=== PATIENT | male | born 1980 | race Caucasian/White ===

== ENCOUNTER 2021-02-15 12:41 | Inpatient (IN) | payer OTHER ==
[2021-02-15 14:40] LABS: BASO % 0.4 % (0-2.0); EOS % 0.4 % (0-4.5); HEMATOCRIT 44.1 % (35.4-49); HEMOGLOBIN 15.2 GM/dL (11.7-16.9); MCH 30.4 pg (25.7-33.7); MCHC 34.5 g/dl (32.0-35.9); MEAN CELL VOLUME 88.3 fl (80-96); MEAN PLT VOLUME 8.2 fl (7.5-11.1); MONO % 9.9 % (3.8-10.2); NEUT % 80.3 % (42.8-82.8); PLATELET COUNT 447 K/MM3 (134-434); RDW 12.9 % (11.9-15.9); WHITE BLOOD COUNT 19.3 K/mm3 (4.0-10.0)
[2021-02-15] MEDS ORDERED: SODIUM CHLORIDE 1,000 ML IV STA ×2 (14:41→16:55)
[2021-02-15 14:45] LABS: PH,URINE 6.5 (5.0-8.0); URINE APPEARANCE CLOUDY; URINE BILIRUBIN NEGATIVE (NEGATIVE); URINE COLOR DK YELLOW; URINE GLUCOSE (UA) NEGATIVE (NEGATIVE); URINE KETONE 2+ (NEGATIVE); URINE LEUK ESTERASE NEGATIVE (NEGATIVE); URINE NITRITE NEGATIVE (NEGATIVE); URINE PROTEIN 1+ (NEGATIVE)
[2021-02-15 15:10] LABS: ALBUMIN 3.6 g/dl (3.4-5.0); CALCIUM 9.6 mg/dL (8.5-10.1)
[2021-02-15 15:11] LABS: BLOOD UREA NITROGEN 17.9 mg/dL (7-18)
[2021-02-15 15:13] LABS: CREATININE 1.1 mg/dL (0.55-1.3)
[2021-02-15 15:15] LABS: TOT PROT 8.4 g/dl (6.4-8.2)
[2021-02-15] MEDS ORDERED: PIPERACILLIN/TAZOB 3.375 GM 3.375 GM in DEXTROSE 5%-WATER - 50 ML IVPB ONE (16:55)
[2021-02-15 18:02] LABS: INR 1.25 (0.83-1.09); PROTHROMBIN TIME (PATIENT) 15.3 SEC (9.7-13.0)
[2021-02-15 18:58] LABS: HYALINE CASTS 3.08 /uL (0-3.1); URINE BACTERIA 22.9 /uL (0-1359); URINE RBC 19.3 /uL (0-23.9); URINE WBC 3.7 /uL (0-25.8)
[2021-02-15] MEDS: SODIUM CHLORIDE 1,000 ML IV SCH (20:00)
[2021-02-15] MEDS ORDERED: ONDANSETRON 4 MG/2 ML VIAL IVPUSH PRN (20:37)
[2021-02-15] MEDS ORDERED: ACETAMINOPHEN 1000 MG/100 ML VIAL (NON FORMULARY) IVPB PRN (21:31)
[2021-02-16] MEDS ORDERED: DEXTROSE 5%-WATER - 50 ML IVPB ONE ×3 (02:25→17:38)
[2021-02-16] MEDS ORDERED: PIPERACILLIN/TAZOBACTAM 2.25 GM VIAL IVPB ONE ×3 (02:25→17:38)
[2021-02-16] MEDS: PIPERACILLIN/TAZOB 2.25 GM 2.25 GM in DEXTROSE 5%-WATER - 50 ML IVPB SCH ×2 (02:28→09:41)
[2021-02-16 03:38] VITALS: BMI 22.5
[2021-02-16] MEDS ORDERED: PT OWN MED DRAWER 7, Y5N ONE (09:17)
[2021-02-16] MEDS: SODIUM CHLORIDE 1,000 ML IV SCH ×2 (16:42→19:58)
[2021-02-16] MEDS ORDERED: PIPERACILLIN/TAZOBACTAM 4.5 GM VIAL IVPB ONE (17:52)
[2021-02-16] MEDS ORDERED: DEXTROSE 5%-WATER 100 ML IVPB ONE (17:53)
[2021-02-16] MEDS: PIPERACILLIN/TAZOB 4.5 GM 4.5 GM in DEXTROSE 5%-WATER 100 ML IVPB SCH (17:59)
[2021-02-17] MEDS ORDERED: PIPERACILLIN/TAZOBACTAM 4.5 GM VIAL IVPB ONE ×3 (00:42→16:43)
[2021-02-17] MEDS ORDERED: DEXTROSE 5%-WATER 100 ML IVPB ONE ×3 (00:42→16:43)
[2021-02-17] MEDS: PIPERACILLIN/TAZOB 4.5 GM 4.5 GM in DEXTROSE 5%-WATER 100 ML IVPB SCH ×3 (01:05→17:52)
[2021-02-17] MEDS ORDERED: PIPERACILLIN/TAZOB 2.25 GM 2.25 GM in DEXTROSE 5%-WATER - 50 ML IVPB SCH (02:00)
[2021-02-17] MEDS ORDERED: ceFAZolin SODIUM 1 GM VIAL ONE (10:48)
[2021-02-17] MEDS ORDERED: PROPOFOL 20 ML ONE ×2 (10:48)
[2021-02-17] MEDS ORDERED: DEXAMETHASONE SOD PHOSPHATE 4 MG/1 ML VIAL ONE ×2 (10:48→13:19)
[2021-02-17] MEDS ORDERED: LIDOCAINE HCL/PF 2% SDV 5ML VIAL ONE ×2 (10:48→11:55)
[2021-02-17] MEDS ORDERED: fentaNYL CITRATE 250 MCG/5 ML VIAL ONE (10:49)
[2021-02-17] MEDS ORDERED: EPHEDRINE SULFATE/0.9% NACL/PF 50 MG/10 ML SYRINGE NR ONE (10:51)
[2021-02-17] MEDS ORDERED: MIDAZOLAM HCL 2 MG/2 ML SINGLE DOSE VIAL ONE (10:52)
[2021-02-17] MEDS ORDERED: ROCURONIUM BROMIDE 50 MG/5 ML SYRINGE ONE (12:36)
[2021-02-17] MEDS ORDERED: HYDROmorphone HCl 2 MG/ML VIAL ONE (12:37)
[2021-02-17] MEDS ORDERED: LACTATED RINGERS SOLUTION 1,000 ML IV SCH ×2 (13:15→14:23)
[2021-02-17] MEDS ORDERED: GLYCOPYRROLATE 0.2 MG/1 ML VIAL ONE (13:18)
[2021-02-17] MEDS ORDERED: KETOROLAC TROMETHAMINE 30 MG/1 ML VIAL ONE (13:19)
[2021-02-17] MEDS ORDERED: NEOSTIGMINE METHYLSULFATE 0.5 MG/ML - 10 ML MDV ONE (13:19)
[2021-02-17] MEDS ORDERED: BUPIVACAINE HCL/PF 0.5% (5 MG/ML) 30 ML VIAL IJ ONE ×2 (13:26)
[2021-02-17] MEDS ORDERED: SODIUM CHLORIDE 1,000 ML IV SCH (14:23)
[2021-02-17] MEDS ORDERED: ONDANSETRON 4 MG/2 ML VIAL IVPUSH PRN (14:23)
[2021-02-17] MEDS ORDERED: MORPHINE SULFATE 2 MG/ML VIAL IVPUSH PRN (14:23)
[2021-02-17] MEDS ORDERED: oxyCODONE HCL 5 MG TABLET PO PRN ×2 (14:23)
[2021-02-17] MEDS ORDERED: ACETAMINOPHEN 1000 MG/100 ML VIAL (NON FORMULARY) IVPB PRN (14:23)
[2021-02-18] MEDS ORDERED: PIPERACILLIN/TAZOBACTAM 4.5 GM VIAL IVPB ONE ×3 (00:37→17:58)
[2021-02-18] MEDS ORDERED: DEXTROSE 5%-WATER 100 ML IVPB ONE ×3 (00:38→17:58)
[2021-02-18] MEDS: PIPERACILLIN/TAZOB 4.5 GM 4.5 GM in DEXTROSE 5%-WATER 100 ML IVPB SCH ×3 (01:04→18:04)
[2021-02-18] MEDS: ENOXAPARIN NA (PORCINE) 40 MG/0.4 ML DISP.SYRIN SQ SCH (13:24)
[2021-02-18] MEDS: ACETAMINOPHEN 325 MG TABLET (FP) PO SCH ×3 (13:24→21:00)
[2021-02-19] MEDS ORDERED: DEXTROSE 5%-WATER 100 ML IVPB ONE ×2 (01:19→10:52)
[2021-02-19] MEDS ORDERED: PIPERACILLIN/TAZOBACTAM 4.5 GM VIAL IVPB ONE ×2 (01:19→10:52)
[2021-02-19] MEDS: PIPERACILLIN/TAZOB 4.5 GM 4.5 GM in DEXTROSE 5%-WATER 100 ML IVPB SCH ×2 (01:31→11:00)
[2021-02-19] MEDS: ACETAMINOPHEN 325 MG TABLET (FP) PO SCH ×3 (01:44→11:00)
[2021-02-19 09:42] VITALS: TEMP 98.1
[2021-02-19 09:44] LABS: BASO % 0.5 % (0-2.0); EOS % 1.2 % (0-4.5); HEMATOCRIT 38.9 % (35.4-49); HEMOGLOBIN 13.3 GM/dL (11.7-16.9); MCH 30.4 pg (25.7-33.7); MCHC 34.3 g/dl (32.0-35.9); MEAN CELL VOLUME 88.6 fl (80-96); MEAN PLT VOLUME 7.8 fl (7.5-11.1); MONO % 9.4 % (3.8-10.2); NEUT % 61.9 % (42.8-82.8); PLATELET COUNT 535 K/MM3 (134-434); RBC 4.39 M/mm3 (4.00-5.60); WHITE BLOOD COUNT 10.2 K/mm3 (4.0-10.0)
[2021-02-19 10:04] LABS: BLOOD UREA NITROGEN 8.3 mg/dL (7-18)
[2021-02-19 10:09] LABS: BILIRUBIN,TOTAL 0.4 mg/dL (0.2-1)
[2021-02-19 10:10] LABS: CREATININE 1.1 mg/dL (0.55-1.3)
[2021-02-19] MEDS: ENOXAPARIN NA (PORCINE) 40 MG/0.4 ML DISP.SYRIN SQ SCH (11:00)
[2021-02-19 14:08] VITALS: BP 107/63; PULSE 87
== END 2021-02-19 16:59 | disposition home or self-care (01) | DRG 419 ==
LOC: JER 12:41 → JERBED 16:54 → J6S 02-16 02:15
PROVIDERS: ADMIT Internal Medicine; ATTEND Internal Medicine
PROC: 0FT44ZZ Resection of Gallbladder, Percutaneous Endoscopic Approach (ICD-10-PCS; principal; 2021-02-17 10:30)
DX: K80.00 Calculus of gallbladder with acute cholecystitis without obstruction (principal); K82.A1 Gangrene of gallbladder in cholecystitis; R50.9 Fever, unspecified
CPT/HCPCS: 36415; 76705-TC; 80053; 81003; 82550; 83690; 84484; 85025; 85610; 86850; 86900; 86901; 88304-TC; 93005; 93010; 94760; 99285-25; C9803; U0003; U0005